=== PATIENT | female | born 1995 ===

== ENCOUNTER 2024-08-30 09:14 | Inpatient (IN) | payer OTHER ==
[~2024-08-30] VITALS: Ht 154.9 cm; Wt 49.9 kg
[2024-08-30 11:05] LABS: HEMATOCRIT 37.1 % (36.0-45.00); HEMOGLOBIN 12.6 g/dL (12.0-15.00); MEAN CELL VOLUME 87.6 fL (80.00-100.00); MEAN CORPUSCULAR HEMOGLOBIN 29.9 pg (27.00-32.0); MEAN CORPUSCULAR HGB CONC 34.1 g/dl (32.0-36.0); PLATELET COUNT 239 K/uL (150-450); RED BLOOD COUNT 4.23 M/uL (4.00-6.00); RED CELL DISTRIBUTION WIDTH 12.5 % (11.5-14.5)
[2024-08-30 11:31] LABS: INR 1.1; PARTIAL THROMBOPLASTIN TIME 27.4 SECONDS (22.0-34.0); PROTHROMBIN TIME 11.9 SECONDS (9.0-11.5)
[2024-08-30 12:18] LABS: ALBUMIN 4.1 gm/dL (3.4-5.0); BILIRUBIN TOTAL 0.88 mg/dL (0.3-1.2); CALCIUM 9.3 mg/dL (8.5-10.1); CREATININE SERUM 0.56 mg/dL (0.55-1.02); GFR 126.26; GLOBULINA 3.9 G/DL (2.4-3.5); POTASSIUM 3.7 mEq/L (3.5-5.1)
[2024-08-31 13:32] VITALS: BP 120/80
[2024-09-17] MEDS ORDERED: POVIDONE-IODINE 118 ML BOTT TOP ONE (13:36)
[2024-09-17] MEDS ORDERED: BUPIVACAINE HCL/MPF 0.5% 30ML VIAL ONE (13:36)
[2024-09-17] MEDS ORDERED: CEFAZOLIN SODIUM 1,000 MG VIAL ONE (14:39)
[2024-09-17] MEDS ORDERED: SUGAMMADEX SODIUM 200 MG/2 ML VIAL IV ONE (17:03)
[2024-09-17] MEDS ORDERED: RINGERS SOLUTION,LACTATED 1,000 ML IV SCH (18:15)
[2024-09-17] MEDS ORDERED: ONDANSETRON HCL 2 MG/ML VIAL IV PRN (18:30)
[2024-09-17] MEDS ORDERED: KETOROLAC TROMETHAMINE 30 MG VIAL ONE (18:40)
[2024-09-17] MEDS ORDERED: ACETAMINOPHEN 325 MG TABLET PO SCH (20:00)
[2024-09-17] MEDS ORDERED: KETOROLAC TROMETHAMINE 30 MG VIAL IV SCH (20:00)
[2024-09-17] MEDS ORDERED: GABAPENTIN 300 MG CAPSULE PO SCH (21:00)
[2024-09-17 22:33] VITALS: BP 119/75
[2024-09-18 00:17] VITALS: BP 109/67
[2024-09-18 05:50] VITALS: BP 105/68
[2024-09-18 07:41] LABS: HEMATOCRIT 32.7 % (36.0-45.00); HEMOGLOBIN 11.3 g/dL (12.0-15.00); MEAN CELL VOLUME 88.7 fL (80.00-100.00); MEAN CORPUSCULAR HEMOGLOBIN 30.5 pg (27.00-32.0); MEAN CORPUSCULAR HGB CONC 34.4 g/dl (32.0-36.0); PLATELET COUNT 228 K/uL (150-450); RED BLOOD COUNT 3.69 M/uL (4.00-6.00); RED CELL DISTRIBUTION WIDTH 13.1 % (11.5-14.5)
[2024-09-18 08:28] LABS: ALBUMIN 3.1 gm/dL (3.4-5.0); BILIRUBIN TOTAL 1.04 mg/dL (0.3-1.2); CALCIUM 8.8 mg/dL (8.5-10.1); CREATININE SERUM 0.55 mg/dL (0.55-1.02); GFR 128.92; GLOBULINA 3.2 G/DL (2.4-3.5); POTASSIUM 3.69 mEq/L (3.5-5.1); TOTAL PROTEIN 6.3 gm/dL (6.4-8.2)
[2024-09-18 09:40] VITALS: BP 105/66
[2024-09-18] MEDS ORDERED: FAMOtidine 20 MG TABLET PO NR (14:30)
[2024-09-19] MEDS ORDERED: FAMOtidine 20 MG TABLET PO SCH (09:00)
== END 2024-09-18 16:42 | disposition home or self-care (01) | DRG 742 ==
LOC: ADM 09:15 → CIR.AMB 09-16 09:15 → SURH 09-16 09:15 → EDSTATUS 09-16 09:15 → O/R 09-17 09:03 → OB/GYN 09-17 18:19
PROVIDERS: Surgery; ADMIT Student in an Organized Health Care Education/Training Program; ATTEND Student in an Organized Health Care Education/Training Program
PROC: 0UBF4ZZ Excision of Cul-de-sac, Percutaneous Endoscopic Approach (ICD-10-PCS; 2024-09-17)
PROC: 0DBN4ZZ Excision of Sigmoid Colon, Percutaneous Endoscopic Approach (ICD-10-PCS; 2024-09-17)
PROC: 0TJB8ZZ Inspection of Bladder, Via Natural or Artificial Opening Endoscopic (ICD-10-PCS; 2024-09-17)
PROC: 0DBP4ZZ Excision of Rectum, Percutaneous Endoscopic Approach (ICD-10-PCS; 2024-09-17)
PROC: 0DQE4ZZ Repair Large Intestine, Percutaneous Endoscopic Approach (ICD-10-PCS; 2024-09-17)
PROC: 8E0W4CZ Robotic Assisted Procedure of Trunk Region, Percutaneous Endoscopic Approach (ICD-10-PCS; 2024-09-17)
PROC: 0DJD8ZZ Inspection of Lower Intestinal Tract, Via Natural or Artificial Opening Endoscopic (ICD-10-PCS; 2024-09-17)
PROC: 0UB14ZZ Excision of Left Ovary, Percutaneous Endoscopic Approach (ICD-10-PCS; principal; 2024-09-17 13:15)
PROC: 0UB74ZZ Excision of Bilateral Fallopian Tubes, Percutaneous Endoscopic Approach (ICD-10-PCS; 2024-09-17 13:15)
DX: N83.12 Corpus luteum cyst of left ovary (principal); K91.71 Accidental puncture and laceration of a digestive system organ or structure during a digestive system procedure; N80.519 Endometriosis of the rectum, unspecified depth; N80.329 Endometriosis of the posterior cul-de-sac, unspecified depth; N80.30 Endometriosis of pelvic peritoneum, unspecified; N80.50 Endometriosis of intestine, unspecified; R10.2 Pelvic and perineal pain; N80.03 Adenomyosis of the uterus; N80.529 Endometriosis of the sigmoid colon, unspecified depth; G89.0 Central pain syndrome; Z30.2 Encounter for sterilization

== ENCOUNTER 2024-09-16 12:28 | Outpatient (CLI) | payer OTHER | END 2024-09-16 12:41 | disposition home or self-care (01) | LOC: LAB 12:28 | PROVIDERS: ATTEND Student in an Organized Health Care Education/Training Program | DX: Z34.01 Encounter for supervision of normal first pregnancy, first trimester (principal) ==